=== PATIENT | male | born 1975 | race Caucasian/White ===

== ENCOUNTER 2023-12-18 06:55 | Inpatient (IN) | payer MEDICARE ==
[2023-12-18 07:48] LABS: #Eosinphils 0.4 thou/uL (0.0-0.7); #Monocytes 0.8 thou/uL (0.11-0.59); #Neutrophils 7.6 thou/uL (1.40-6.50); %Basophils 0.3 % (0.0-1.0); %Eosinophils 3.4 % (0.0-10.0); %Lymphocytes 22.7 % (21.0-51.0); %Monocytes 6.6 % (0.0-10.0); %Neutrophils 66.6 % (42.0-75.0); Hematocrit 44.8 % (42.0-52.0); Hemoglobin 15.9 g/dL (14.0-18.0); Mean Corpuscular HGB CONC 35.5 g/dL (32.0-36.0); Mean Corpuscular Hemoglobin 29.3 pg (27.0-31.0); Mean Corpuscular Volume 82.7 fl (78.0-98.0); Mean Platelet Volume 9.2 fL (7.4-10.4); Platelet Count 291 10x3/uL (130-400); RBC Distribution Width 13.5 % (11.5-14.5); Red Blood Cell (RBC) Count 5.42 mill/uL (4.70-6.10); White Blood Cell (WBC) Count 11.4 10x3/uL (4.8-10.8)
[2023-12-18 08:11] LABS: ALT (SGPT) 21 U/L (8-55); AST (SGOT) 19 U/L (5-34); Albumin 4.1 g/dL (3.5-5.0); Alkaline Phosphatase 113 U/L (40-110); Anion Gap 16 mmol/L (10-20); BUN (Urea Nitrogen) 19 mg/dL (8.9-20.6); Bilirubin, Total 0.9 mg/dL (0.2-1.2); Calc. Creatinine Clearance 0 mL/min (70-130); Calcium 9.5 mg/dL (7.8-10.44); Carbon Dioxide 29 mmol/L (22-29); Chloride 92 mmol/L (98-107); Estimated GFR 39; Globulin 2.8 g/dL (2.4-3.5); Magnesium 2.3 mg/dL (1.6-2.6); Potassium 3.3 mmol/L (3.5-5.1); Protein, Total 6.9 g/dL (6.0-8.3); Sodium 134 mmol/L (136-145)
[2023-12-18 08:14] LABS: Troponin I 0.068 ng/mL (< 0.028)
[2023-12-18 08:23] LABS: Critical Call Chemistry ERS.JAN@0825; Glucose 464 mg/dL (70-105)
[2023-12-18] MEDS ORDERED: clonazePAM 1 MG TAB ONE (08:51)
[2023-12-18] MEDS ORDERED: Potassium Chloride 20 MEQ TAB ONE (08:51)
[2023-12-18] MEDS ORDERED: Furosemide 20 MG (2 mL) VIAL ONE (08:51)
[2023-12-18] MEDS ORDERED: Ondansetron PF 4 MG/2 ML Vial IVP PRN (09:58)
[2023-12-18] MEDS ORDERED: Insulin Glargine 30 UNITS/0.3 ML VIAL SC SCH (10:15)
[2023-12-18] MEDS ORDERED: Acetaminophen 325 MG TAB ONE (10:47)
[2023-12-18] MEDS: Acetaminophen 325 MG TAB PO PRN ×2 (10:56→21:54)
[2023-12-18] MEDS ORDERED: Carvedilol 25 MG TAB PO SCH (11:15)
[2023-12-18] MEDS ORDERED: hydrALAZINE 25 MG TAB PO SCH (11:15)
[2023-12-18] MEDS ORDERED: Carvedilol 25 MG TAB ONE (11:46)
[2023-12-18] MEDS ORDERED: hydrALAZINE 25 MG TAB ONE ×2 (11:46→13:55)
[2023-12-18] MEDS ORDERED: Furosemide 40 MG (4 mL) VIAL ONE (13:55)
[2023-12-18] MEDS: Furosemide 40 MG (4 mL) VIAL SLOW IVP SCH (14:02)
[2023-12-18] MEDS: hydrALAZINE 25 MG TAB PO SCH ×2 (15:05→21:54)
[2023-12-18] MEDS ORDERED: lamoTRIgine 100 MG TAB PO SCH (15:15)
[2023-12-18] MEDS ORDERED: HumaLOG 300 UNITS/3 ML VIAL SC PRN (20:36)
[2023-12-18] MEDS: lamoTRIgine 100 MG TAB PO SCH (21:54)
[2023-12-18] MEDS: Carvedilol 25 MG TAB PO SCH (21:54)
[2023-12-18] MEDS: HumaLOG 300 UNITS/3 ML VIAL SC PRN (21:55)
[2023-12-18] MEDS ORDERED: clonazePAM 0.5 MG TAB PO SCH (22:30)
[2023-12-19] MEDS: HumaLOG 300 UNITS/3 ML VIAL SC PRN ×2 (06:37→17:46)
[2023-12-19] MEDS: Furosemide 40 MG (4 mL) VIAL SLOW IVP SCH ×2 (06:37→15:15)
[2023-12-19 07:44] LABS: #Eosinphils 0.4 thou/uL (0.0-0.7); #Monocytes 0.7 thou/uL (0.11-0.59); #Neutrophils 7.3 thou/uL (1.40-6.50); %Basophils 0.4 % (0.0-1.0); %Eosinophils 3.2 % (0.0-10.0); %Lymphocytes 23.4 % (21.0-51.0); %Neutrophils 66.6 % (42.0-75.0); Hematocrit 52.9 % (42.0-52.0); Hemoglobin 18.1 g/dL (14.0-18.0); Mean Corpuscular HGB CONC 34.2 g/dL (32.0-36.0); Mean Corpuscular Hemoglobin 28.7 pg (27.0-31.0); Mean Corpuscular Volume 83.8 fl (78.0-98.0); Mean Platelet Volume 9.4 fL (7.4-10.4); Platelet Count 347 10x3/uL (130-400); RBC Distribution Width 13.9 % (11.5-14.5); Red Blood Cell (RBC) Count 6.31 mill/uL (4.70-6.10); White Blood Cell (WBC) Count 10.9 10x3/uL (4.8-10.8)
[2023-12-19 08:02] LABS: Anion Gap 17 mmol/L (10-20); BUN (Urea Nitrogen) 21 mg/dL (8.9-20.6); Calc. Creatinine Clearance 86 mL/min (70-130); Calcium 9.6 mg/dL (7.8-10.44); Carbon Dioxide 28 mmol/L (22-29); Chloride 93 mmol/L (98-107); Estimated GFR 42; Glucose 316 mg/dL (70-105); Potassium 3.3 mmol/L (3.5-5.1); Sodium 135 mmol/L (136-145)
[2023-12-19] MEDS: Carvedilol 25 MG TAB PO SCH ×2 (08:35→22:00)
[2023-12-19] MEDS: Enoxaparin 40 MG (0.4 mL) SYRINGE SC SCH (08:36)
[2023-12-19] MEDS: hydrALAZINE 25 MG TAB PO SCH ×3 (08:36→22:01)
[2023-12-19] MEDS: lamoTRIgine 100 MG TAB PO SCH ×3 (08:37→22:00)
[2023-12-19] MEDS ORDERED: Insulin Glargine 30 UNITS/0.3 ML VIAL SC SCH ×2 (09:00→10:45)
[2023-12-19] MEDS ORDERED: clonazePAM 1 MG TAB PO PRN ×2 (11:01→17:05)
[2023-12-19] MEDS ORDERED: Isosorbide Dinitrate 20 MG TAB PO SCH (11:45)
[2023-12-19] MEDS: HumaLOG 300 UNITS/3 ML VIAL SC SCH ×2 (12:34→17:46)
[2023-12-19] MEDS: Isosorbide Dinitrate 5 MG TAB PO SCH (22:00)
[2023-12-20 05:05] VITALS: BMI 37.5
[2023-12-20] MEDS: Furosemide 40 MG (4 mL) VIAL SLOW IVP SCH ×2 (06:11→13:08)
[2023-12-20] MEDS: Enoxaparin 40 MG (0.4 mL) SYRINGE SC SCH (07:52)
[2023-12-20] MEDS: hydrALAZINE 25 MG TAB PO SCH ×3 (07:52→20:57)
[2023-12-20] MEDS: lamoTRIgine 100 MG TAB PO SCH ×3 (07:53→20:56)
[2023-12-20] MEDS: Carvedilol 25 MG TAB PO SCH ×2 (07:53→20:57)
[2023-12-20] MEDS: Isosorbide Dinitrate 5 MG TAB PO SCH (07:54)
[2023-12-20] MEDS: HumaLOG 300 UNITS/3 ML VIAL SC SCH ×3 (07:54→16:18)
[2023-12-20] MEDS: hydrALAZINE 20 MG/ML VIAL SLOW IVP PRN ×2 (07:55→17:34)
[2023-12-20] MEDS ORDERED: Insulin Glargine 30 UNITS/0.3 ML VIAL SC SCH (09:00)
[2023-12-20] MEDS: clonazePAM 1 MG TAB PO PRN ×2 (09:02→17:44)
[2023-12-20] MEDS: Empagliflozin 10 MG TAB PO SCH (09:02)
[2023-12-20 09:34] LABS: #Eosinphils 0.3 thou/uL (0.0-0.7); #Monocytes 0.6 thou/uL (0.11-0.59); #Neutrophils 7.2 thou/uL (1.40-6.50); %Basophils 0.3 % (0.0-1.0); %Lymphocytes 20.7 % (21.0-51.0); %Monocytes 5.8 % (0.0-10.0); %Neutrophils 69.8 % (42.0-75.0); Hematocrit 48.8 % (42.0-52.0); Hemoglobin 16.7 g/dL (14.0-18.0); Mean Corpuscular HGB CONC 34.2 g/dL (32.0-36.0); Mean Corpuscular Hemoglobin 29.1 pg (27.0-31.0); Mean Corpuscular Volume 85.2 fl (78.0-98.0); Mean Platelet Volume 9.7 fL (7.4-10.4); Platelet Count 356 10x3/uL (130-400); RBC Distribution Width 13.8 % (11.5-14.5); Red Blood Cell (RBC) Count 5.73 mill/uL (4.70-6.10); White Blood Cell (WBC) Count 10.3 10x3/uL (4.8-10.8)
[2023-12-20 09:53] LABS: Albumin 4.2 g/dL (3.5-5.0); Anion Gap 16 mmol/L (10-20); BUN (Urea Nitrogen) 23 mg/dL (8.9-20.6); BUN/Creatinine Ratio 11.27; Calc. Creatinine Clearance 80 mL/min (70-130); Calcium 9.6 mg/dL (7.8-10.44); Carbon Dioxide 29 mmol/L (22-29); Chloride 93 mmol/L (98-107); Estimated GFR 39; Glucose 318 mg/dL (70-105); Phosphorus 3.2 mg/dL (2.3-4.7); Potassium 3.1 mmol/L (3.5-5.1); Sodium 135 mmol/L (136-145)
[2023-12-20] MEDS ORDERED: Potassium Chloride 20 MEQ TAB PO SCH (11:00)
[2023-12-20] MEDS: Acetaminophen 325 MG TAB PO PRN ×2 (11:30→17:44)
[2023-12-20] MEDS: HumaLOG 300 UNITS/3 ML VIAL SC PRN ×2 (12:11→17:46)
[2023-12-20 17:35] LABS: Magnesium 2.5 mg/dL (1.6-2.6)
[2023-12-20] MEDS: Isosorbide Dinitrate 20 MG TAB PO SCH (20:57)
[2023-12-20] MEDS ORDERED: clonazePAM 1 MG TAB PO SCH (21:00)
[2023-12-21] MEDS: Furosemide 40 MG (4 mL) VIAL SLOW IVP SCH (05:20)
[2023-12-21 05:27] LABS: #Eosinphils 0.3 thou/uL (0.0-0.7); #Monocytes 0.7 thou/uL (0.11-0.59); #Neutrophils 5.5 thou/uL (1.40-6.50); %Basophils 0.3 % (0.0-1.0); %Lymphocytes 25.4 % (21.0-51.0); %Monocytes 7.9 % (0.0-10.0); %Neutrophils 63.2 % (42.0-75.0); Hematocrit 43.1 % (42.0-52.0); Hemoglobin 14.6 g/dL (14.0-18.0); Mean Corpuscular HGB CONC 33.9 g/dL (32.0-36.0); Mean Corpuscular Hemoglobin 29.3 pg (27.0-31.0); Mean Corpuscular Volume 86.5 fl (78.0-98.0); Platelet Count 276 10x3/uL (130-400); Red Blood Cell (RBC) Count 4.98 mill/uL (4.70-6.10); White Blood Cell (WBC) Count 8.7 10x3/uL (4.8-10.8)
[2023-12-21 06:03] LABS: Anion Gap 12 mmol/L (10-20); BUN (Urea Nitrogen) 21 mg/dL (8.9-20.6); Calc. Creatinine Clearance 75 mL/min (70-130); Calcium 9.3 mg/dL (7.8-10.44); Carbon Dioxide 30 mmol/L (22-29); Chloride 97 mmol/L (98-107); Estimated GFR 36; Glucose 255 mg/dL (70-105); Potassium 3.1 mmol/L (3.5-5.1); Sodium 136 mmol/L (136-145)
[2023-12-21] MEDS: hydrALAZINE 25 MG TAB PO SCH ×2 (08:55→15:29)
[2023-12-21] MEDS: Isosorbide Dinitrate 20 MG TAB PO SCH ×2 (08:55→15:29)
[2023-12-21] MEDS: Carvedilol 25 MG TAB PO SCH ×2 (08:55→15:29)
[2023-12-21] MEDS: Empagliflozin 10 MG TAB PO SCH (08:55)
[2023-12-21] MEDS: Enoxaparin 40 MG (0.4 mL) SYRINGE SC SCH (08:56)
[2023-12-21] MEDS: HumaLOG 300 UNITS/3 ML VIAL SC SCH ×2 (08:57→12:58)
[2023-12-21] MEDS: HumaLOG 300 UNITS/3 ML VIAL SC PRN ×2 (08:58→12:58)
[2023-12-21] MEDS ORDERED: Ezetimibe 10 MG TAB PO SCH (09:00)
[2023-12-21] MEDS ORDERED: Insulin Glargine 30 UNITS/0.3 ML VIAL SC SCH (09:00)
[2023-12-21] MEDS: lamoTRIgine 100 MG TAB PO SCH ×2 (09:06→15:28)
[2023-12-21] MEDS ORDERED: Potassium Chloride 20 MEQ TAB PO SCH ×2 (09:45→17:00)
[2023-12-21] MEDS ORDERED: Magnesium Oxide 400 MG TAB PO SCH (09:45)
[2023-12-21 11:21] VITALS: BP 177/103; TEMP 97.6
[2023-12-21] MEDS ORDERED: Amlodipine 5 MG TAB PO SCH (13:15)
[2023-12-21 13:56] LABS: Creatinine, Urine 54.87 mg/dL (63-166); Protein, Urine Random Quant 107 mg/dL (1-14); Sodium, Urine Less than 20 mmol/L (Not Available); Urea Nitrogen, Random Urine 326 mg/dl
[2023-12-22] MEDS ORDERED: Spironolactone 25 MG TAB PO SCH (08:00)
[2023-12-22] MEDS ORDERED: Amlodipine 5 MG TAB PO SCH (09:00)
[2023-12-22] MEDS ORDERED: Magnesium Oxide 400 MG TAB PO SCH (09:00)
== END 2023-12-21 16:05 | disposition home or self-care (01) | DRG 280 ==
LOC: ERS 06:55 → ERHOLD 09:23 → 2SW 18:10 → OBSVTOIN 12-20 16:33
PROVIDERS: ADMIT Internal Medicine; ATTEND Internal Medicine
DX: I13.0 Hypertensive heart and chronic kidney disease with heart failure and stage 1 through stage 4 chronic kidney disease, or unspecified chronic kidney disease (principal); I50.43 Acute on chronic combined systolic (congestive) and diastolic (congestive) heart failure; I21.A1 Myocardial infarction type 2; N17.9 Acute kidney failure, unspecified; E11.9 Type 2 diabetes mellitus without complications; E11.22 Type 2 diabetes mellitus with diabetic chronic kidney disease; F41.8 Other specified anxiety disorders; F31.9 Bipolar disorder, unspecified; F12.90 Cannabis use, unspecified, uncomplicated; E66.9 Obesity, unspecified; G47.33 Obstructive sleep apnea (adult) (pediatric); Z68.37 Body mass index [BMI] 37.0-37.9, adult; N18.30 Chronic kidney disease, stage 3 unspecified; I16.0 Hypertensive urgency; E87.6 Hypokalemia; Z71.6 Tobacco abuse counseling; Z79.899 Other long term (current) drug therapy; Z90.49 Acquired absence of other specified parts of digestive tract; Z91.148 Patient's other noncompliance with medication regimen for other reason; Z98.84 Bariatric surgery status; Z98.890 Other specified postprocedural states; Z82.49 Family history of ischemic heart disease and other diseases of the circulatory system
CPT/HCPCS: 36415; 36416; 71045; 76770; 80048; 80053; 80069; 82088; 82570; 83735; 83880; 84156; 84244; 84300; 84484; 84540; 85025; 93005; 93306; 93798; 96372; 96374; 96375; 96376; 97139; G0378; J0360; J1650; J1815; J1940

== ENCOUNTER 2024-10-09 10:46 | Inpatient (IN) | payer MEDICARE ==
[2024-10-09 13:40] LABS: #Basophils Less than 0.03 10x3/uL (0.0-0.2); %Basophils 0.2 % (0.0-1.0); %Eosinophils 2.6 % (0.0-10.0); %Lymphocytes 21.8 % (21.0-51.0); %Monocytes 6.8 % (0.0-10.0); %Neutrophils 68.2 % (42.0-75.0); Hematocrit 49.5 % (42.0-52.0); Hemoglobin 16.2 g/dL (14.0-18.0); Mean Corpuscular HGB CONC 32.7 g/dL (32.0-36.0); Mean Corpuscular Hemoglobin 28.2 pg (27.0-31.0); Mean Corpuscular Volume 86.2 fL (78.0-98.0); Platelet Count 339 10x3/uL (130-400); RBC Distribution Width 14.6 % (11.5-14.5); Red Blood Cell (RBC) Count 5.74 mill/uL (4.70-6.10)
[2024-10-09 13:54] LABS: INR-International Normal Ratio 0.9; Prothrombin Time 11.7 sec (12.0-14.7)
[2024-10-09 13:58] LABS: PTT 26.1 sec (22.9-36.1)
[2024-10-09 14:31] LABS: Troponin I 0.083 ng/mL (< 0.028)
[2024-10-09 14:54] LABS: ALT (SGPT) 23 U/L (8-55); AST (SGOT) 24 U/L (5-34); Albumin 3.3 g/dL (3.5-5.0); Alkaline Phosphatase 116 U/L (40-110); Anion Gap 19 mmol/L (10-20); BUN (Urea Nitrogen) 26 mg/dL (8.9-20.6); Bilirubin, Total 0.5 mg/dL (0.2-1.2); Calc. Creatinine Clearance 0 mL/min (70-130); Calcium 9.4 mg/dL (7.8-10.44); Carbon Dioxide 28 mmol/L (22-29); Chloride 89 mmol/L (98-107); Estimated GFR 34; Globulin 3.8 g/dL (2.4-3.5); Glucose 427 mg/dL (70-105); Potassium 3.3 mmol/L (3.5-5.1); Protein, Total 7.1 g/dL (6.0-8.3); Sodium 133 mmol/L (136-145)
[2024-10-09 15:04] LABS: Bacteria/HPF None Seen HPF (None Seen); Bilirubin Negative (Negative); Blood, Urine 1+ (Negative); CAUTI Indications for Culture Pelvic or flank pain; Clarity Clear (Clear); Glucose, Urine (Dipstick) Greater than 1000 mg/dL (Negative); Ketone, Urine Negative (Negative); Leukocyte Negative Leu/uL (Negative); Nitrite Negative (Negative); Protein, Urine (Dipstick) 300 mg/dL (Neg-Trace); RBC/HPF 0-3 HPF (0-3); Specific Gravity, Urine 1.014 (1.002-1.036); Squamous Epithelial 0-3 HPF (0-3); Urobilinogen Normal mg/dL (Less than 2); WBC/HPF 0-3 HPF (0-3)
[2024-10-09 15:06] LABS: Urine Culture Reflex No No
[2024-10-09] MEDS ORDERED: Potassium Chloride 20 MEQ TAB ONE (16:09)
[2024-10-09 17:00] LABS: Troponin I 0.093 ng/mL (< 0.028)
[2024-10-09] MEDS ORDERED: hydrALAZINE 20 MG/ML VIAL ONE ×2 (18:17→18:57)
[2024-10-09] MEDS ORDERED: niCARdipine 25 MG/10 ML SDV ONE ×2 (19:16→22:45)
[2024-10-09] MEDS ORDERED: Aspirin Chewable 81 MG TAB ONE (19:27)
[2024-10-09] MEDS ORDERED: Acetaminophen 325 MG TAB PO PRN (19:35)
[2024-10-09] MEDS ORDERED: Magnesium 2 GM/50 ML BAG (IN WATER) ONE (20:07)
[2024-10-09] MEDS ORDERED: Dextrose 50% Abboject 50 ML SYRINGE SLOW IVP PRN (21:02)
[2024-10-09] MEDS ORDERED: Dextrose 5% in Water 1,000 ML IV PRN (21:02)
[2024-10-09] MEDS ORDERED: Glucagon 1 MG/ML KIT IM PRN (21:02)
[2024-10-09 21:56] LABS: Hemoglobin A1c 12.2 % (4.0-6.0)
[2024-10-09 22:02] LABS: Troponin I 0.104 ng/mL (< 0.028)
[2024-10-09] MEDS ORDERED: Lorazepam 1 MG TAB PO PRN (23:28)
[2024-10-10 00:16] VITALS: BMI 39.2
[2024-10-10] MEDS ORDERED: hydrALAZINE 20 MG/ML VIAL SLOW IVP PRN (01:10)
[2024-10-10] MEDS ORDERED: Labetalol HCl 100 MG/20 ML VIAL SLOW IVP PRN (01:10)
[2024-10-10] MEDS: niCARdipine 25 MG in Sodium Chloride 0.9% 250 ML 250 ML IVPB SCH (01:28)
[2024-10-10] MEDS: Insulin Lispro 100 UNIT/ML 10 ML VIAL SC PRN ×2 (01:51→11:04)
[2024-10-10] MEDS: clonazePAM 1 MG TAB PO SCH ×2 (01:58→08:33)
[2024-10-10 02:16] LABS: Troponin I 0.111 ng/mL (< 0.028)
[2024-10-10 05:42] LABS: #Basophils 0.05 10x3/uL (0.0-0.2); %Basophils 0.4 % (0.0-1.0); %Eosinophils 2.2 % (0.0-10.0); %Lymphocytes 17.1 % (21.0-51.0); %Monocytes 8.3 % (0.0-10.0); %Neutrophils 71.6 % (42.0-75.0); Hematocrit 47.9 % (42.0-52.0); Hemoglobin 15.6 g/dL (14.0-18.0); Mean Corpuscular HGB CONC 32.6 g/dL (32.0-36.0); Mean Corpuscular Hemoglobin 28.1 pg (27.0-31.0); Mean Corpuscular Volume 86.3 fL (78.0-98.0); Mean Platelet Volume 9.7 fL (7.4-10.4); Platelet Count 361 10x3/uL (130-400); RBC Distribution Width 14.6 % (11.5-14.5); Red Blood Cell (RBC) Count 5.55 mill/uL (4.70-6.10)
[2024-10-10 08:19] LABS: Anion Gap 16 mmol/L (10-20); BUN (Urea Nitrogen) 27 mg/dL (8.9-20.6); Calc. Creatinine Clearance 73 mL/min (70-130); Calcium 9.4 mg/dL (7.8-10.44); Carbon Dioxide 29 mmol/L (22-29); Chloride 90 mmol/L (98-107); Estimated GFR 33; Glucose 309 mg/dL (70-105); Potassium 2.8 mmol/L (3.5-5.1); Sodium 132 mmol/L (136-145)
[2024-10-10] MEDS: hydrALAZINE 25 MG TAB PO SCH (08:30)
[2024-10-10] MEDS: Atorvastatin Calcium 40 MG TAB PO SCH (08:31)
[2024-10-10] MEDS: NIFEdipine XL 60 MG ER.TAB PO SCH (08:31)
[2024-10-10] MEDS: Isosorbide Mononitrate 30 MG ER.TAB PO SCH (08:32)
[2024-10-10] MEDS: Empagliflozin 10 MG TAB PO SCH (08:32)
[2024-10-10] MEDS: Ezetimibe 10 MG TAB PO SCH (08:32)
[2024-10-10] MEDS: lamoTRIgine 100 MG TAB PO SCH (08:32)
[2024-10-10] MEDS: Spironolactone 25 MG TAB PO SCH (08:32)
[2024-10-10] MEDS: Aripiprazole 10 MG TAB PO SCH (08:32)
[2024-10-10] MEDS: Pantoprazole DR 40 MG TAB PO SCH (08:32)
[2024-10-10] MEDS: Insulin Glargine 30 UNITS/0.3 ML VIAL SC SCH (08:33)
[2024-10-10] MEDS: Enoxaparin 40 MG (0.4 mL) SYRINGE SC SCH (08:33)
[2024-10-10] MEDS ORDERED: Insulin Glargine 30 UNITS/0.3 ML VIAL SC SCH ×2 (09:00→21:00)
[2024-10-10] MEDS ORDERED: Electrolyte Replacement Protocol 1 EACH FS PRN (10:51)
[2024-10-10] MEDS: Potassium Chloride 20 MEQ TAB PO SCH ×2 (11:09→22:48)
[2024-10-10] MEDS: Acetaminophen 500 MG TAB PO PRN (12:40)
[2024-10-10 13:22] LABS: Magnesium 2.5 mg/dL (1.6-2.6)
[2024-10-10 13:46] LABS: Anion Gap 19 mmol/L (10-20); BUN (Urea Nitrogen) 29 mg/dL (8.9-20.6); Calc. Creatinine Clearance 68 mL/min (70-130); Calcium 9.6 mg/dL (7.8-10.44); Carbon Dioxide 27 mmol/L (22-29); Chloride 88 mmol/L (98-107); Estimated GFR 31; Glucose 392 mg/dL (70-105); Potassium 3.1 mmol/L (3.5-5.1); Sodium 131 mmol/L (136-145)
[2024-10-10 13:50] LABS: Troponin I 0.139 ng/mL (< 0.028)
[2024-10-10 19:38] LABS: Potassium 3.2 mmol/L (3.5-5.1)
[2024-10-10] MEDS: hydrOXYzine 25 MG TAB PO SCH (22:47)
[2024-10-11 05:50] LABS: #Basophils 0.05 10x3/uL (0.0-0.2); %Basophils 0.4 % (0.0-1.0); %Lymphocytes 12.6 % (21.0-51.0); %Monocytes 7.3 % (0.0-10.0); %Neutrophils 77.4 % (42.0-75.0); Hemoglobin 14.2 g/dL (14.0-18.0); Mean Corpuscular Hemoglobin 28.3 pg (27.0-31.0); Mean Corpuscular Volume 85.7 fL (78.0-98.0); Mean Platelet Volume 9.5 fL (7.4-10.4); Platelet Count 359 10x3/uL (130-400); RBC Distribution Width 14.6 % (11.5-14.5); Red Blood Cell (RBC) Count 5.02 mill/uL (4.70-6.10)
[2024-10-11 06:05] LABS: ALT (SGPT) 30 U/L (8-55); AST (SGOT) 31 U/L (5-34); Albumin 3.1 g/dL (3.5-5.0); Alkaline Phosphatase 105 U/L (40-110); Anion Gap 16 mmol/L (10-20); BUN (Urea Nitrogen) 27 mg/dL (8.9-20.6); Bilirubin, Total 0.8 mg/dL (0.2-1.2); Calc. Creatinine Clearance 70 mL/min (70-130); Carbon Dioxide 27 mmol/L (22-29); Chloride 95 mmol/L (98-107); Estimated GFR 32; Glucose 268 mg/dL (70-105); Potassium 3.3 mmol/L (3.5-5.1); Protein, Total 6.1 g/dL (6.0-8.3); Sodium 135 mmol/L (136-145)
[2024-10-11] MEDS: Labetalol HCl 100 MG TAB PO SCH (08:54)
[2024-10-11] MEDS: Spironolactone 25 MG TAB PO SCH (08:54)
[2024-10-11] MEDS: Potassium Chloride 20 MEQ TAB PO SCH (09:55)
[2024-10-11] MEDS: clonazePAM 0.5 MG TAB PO SCH (13:18)
[2024-10-11] MEDS: Isosorbide Mononitrate 30 MG ER.TAB PO SCH (21:16)
[2024-10-11] MEDS: clonazePAM 1 MG TAB PO SCH (21:17)
[2024-10-11] MEDS: NIFEdipine XL 60 MG ER.TAB PO SCH (21:17)
[2024-10-12] MEDS: Ipratropium/Albuterol 3 ML NEB NEB PRN (02:17)
[2024-10-12] MEDS: Furosemide 40 MG (4 mL) VIAL SLOW IVP SCH ×2 (03:09→09:01)
[2024-10-12 03:45] LABS: #Basophils 0.05 10x3/uL (0.0-0.2); %Basophils 0.3 % (0.0-1.0); %Eosinophils 1.6 % (0.0-10.0); %Lymphocytes 11.9 % (21.0-51.0); %Monocytes 6.6 % (0.0-10.0); %Neutrophils 79.1 % (42.0-75.0); Hematocrit 41.8 % (42.0-52.0); Hemoglobin 13.8 g/dL (14.0-18.0); Mean Platelet Volume 9.4 fL (7.4-10.4); Platelet Count 425 10x3/uL (130-400); RBC Distribution Width 14.4 % (11.5-14.5); Red Blood Cell (RBC) Count 4.92 mill/uL (4.70-6.10)
[2024-10-12 04:01] LABS: ALT (SGPT) 29 U/L (8-55); AST (SGOT) 25 U/L (5-34); Albumin 3.2 g/dL (3.5-5.0); Alkaline Phosphatase 104 U/L (40-110); Anion Gap 17 mmol/L (10-20); BUN (Urea Nitrogen) 28 mg/dL (8.9-20.6); Calc. Creatinine Clearance 58 mL/min (70-130); Calcium 8.9 mg/dL (7.8-10.44); Carbon Dioxide 24 mmol/L (22-29); Chloride 95 mmol/L (98-107); Estimated GFR 25; Globulin 3.3 g/dL (2.4-3.5); Glucose 246 mg/dL (70-105); Potassium 3.4 mmol/L (3.5-5.1); Protein, Total 6.5 g/dL (6.0-8.3); Sodium 133 mmol/L (136-145)
[2024-10-12 11:18] LABS: Creatinine, Urine 101.67 mg/dL (63-166); Protein, Urine Random Quant 123 mg/dL (1-14); Sodium, Urine Less than 20 mmol/L (Not Available); Urea Nitrogen, Random Urine 279 mg/dl
[2024-10-12] MEDS: Potassium Chloride 20 MEQ TAB PO SCH (11:25)
[2024-10-12] MEDS: Insulin Lispro 100 UNIT/ML 10 ML VIAL SC PRN (12:35)
[2024-10-12] MEDS: traMADol HCl 50 MG TAB PO PRN (12:42)
[2024-10-13 06:37] LABS: Anion Gap 17 mmol/L (10-20); BUN (Urea Nitrogen) 33 mg/dL (8.9-20.6); Calc. Creatinine Clearance 47 mL/min (70-130); Calcium 9.3 mg/dL (7.8-10.44); Carbon Dioxide 23 mmol/L (22-29); Chloride 96 mmol/L (98-107); Estimated GFR 20; Glucose 191 mg/dL (70-105); Sodium 132 mmol/L (136-145)
[2024-10-13] MEDS ORDERED: Electrolyte Replacement Protocol 1 EACH FS PRN (08:53)
[2024-10-13] MEDS: clonazePAM 1 MG TAB PO SCH (09:38)
[2024-10-13] MEDS: FLU (Fluarix Triv) TS24-25(6MOS UP)/PF 45 MCG/0.5 ML Syringe IM ONE (09:39)
[2024-10-13] MEDS: Furosemide 40 MG (4 mL) VIAL SLOW IVP SCH (15:20)
[2024-10-13] MEDS: DOBUTamine 500 mg/250 ml 250 ML IVPB SCH (23:11)
[2024-10-14 02:42] LABS: #Basophils 0.05 10x3/uL (0.0-0.2); %Basophils 0.4 % (0.0-1.0); %Eosinophils 2.2 % (0.0-10.0); %Lymphocytes 16.4 % (21.0-51.0); %Monocytes 7.8 % (0.0-10.0); %Neutrophils 72.8 % (42.0-75.0); Hematocrit 37.5 % (42.0-52.0); Hemoglobin 12.2 g/dL (14.0-18.0); Mean Corpuscular HGB CONC 32.5 g/dL (32.0-36.0); Mean Corpuscular Hemoglobin 28.2 pg (27.0-31.0); Mean Corpuscular Volume 86.8 fL (78.0-98.0); Mean Platelet Volume 10.6 fL (7.4-10.4); Platelet Count 381 10x3/uL (130-400); RBC Distribution Width 14.7 % (11.5-14.5); Red Blood Cell (RBC) Count 4.32 mill/uL (4.70-6.10)
[2024-10-14] MEDS ORDERED: Nystatin Powder 15 GM BOT TOP PRN (04:03)
[2024-10-14 04:50] LABS: Anion Gap 20 mmol/L (10-20); BUN (Urea Nitrogen) 36 mg/dL (8.9-20.6); Calc. Creatinine Clearance 42 mL/min (70-130); Calcium 8.9 mg/dL (7.8-10.44); Carbon Dioxide 22 mmol/L (22-29); Chloride 95 mmol/L (98-107); Estimated GFR 17; Glucose 155 mg/dL (70-105); Potassium 3.8 mmol/L (3.5-5.1); Sodium 133 mmol/L (136-145)
[2024-10-14] MEDS: Metolazone 5 MG TAB PO SCH (11:48)
[2024-10-14] MEDS: Albumin 25% 25 GM (100 mL) BOT IVPB SCH (11:48)
[2024-10-14] MEDS: Furosemide 100 MG (10 mL) VIAL SLOW IVP SCH (13:09)
[2024-10-14] MEDS ORDERED: Furosemide 40 MG (4 mL) VIAL SLOW IVP SCH (14:00)
[2024-10-14 18:59] LABS: Bacteria/HPF None Seen HPF (None Seen); Bilirubin Negative (Negative); Blood, Urine 1+ (Negative); Clarity Turbid (Clear); Glucose, Urine (Dipstick) Greater than 1000 mg/dL (Negative); Ketone, Urine Negative (Negative); Leukocyte 25 Leu/uL (Negative); Nitrite Negative (Negative); Protein, Urine (Dipstick) 100 mg/dL (Neg-Trace); RBC/HPF 0-3 HPF (0-3); Specific Gravity, Urine 1.011 (1.002-1.036); Urobilinogen Normal mg/dL (Less than 2); pH, Urine 5.5 (5.0-9.0)
[2024-10-15 02:58] LABS: Anion Gap 20 mmol/L (10-20); BUN (Urea Nitrogen) 35 mg/dL (8.9-20.6); Calc. Creatinine Clearance 48 mL/min (70-130); Calcium 9.1 mg/dL (7.8-10.44); Carbon Dioxide 23 mmol/L (22-29); Chloride 92 mmol/L (98-107); Estimated GFR 19; Glucose 220 mg/dL (70-105); Potassium 3.5 mmol/L (3.5-5.1); Sodium 131 mmol/L (136-145)
[2024-10-15] MEDS: Albumin 25% 25 GM (100 mL) BOT IVPB SCH (12:35)
[2024-10-16] MEDS: Labetalol HCl 100 MG TAB PO SCH (07:50)
[2024-10-16 07:52] LABS: #Basophils 0.03 10x3/uL (0.0-0.2); %Basophils 0.3 % (0.0-1.0); %Eosinophils 4.5 % (0.0-10.0); %Lymphocytes 16.6 % (21.0-51.0); %Monocytes 8.6 % (0.0-10.0); %Neutrophils 69.6 % (42.0-75.0); Hematocrit 35.7 % (42.0-52.0); Hemoglobin 11.8 g/dL (14.0-18.0); Mean Corpuscular HGB CONC 33.1 g/dL (32.0-36.0); Mean Corpuscular Volume 84.8 fL (78.0-98.0); Mean Platelet Volume 9.2 fL (7.4-10.4); Platelet Count 444 10x3/uL (130-400); RBC Distribution Width 14.1 % (11.5-14.5); Red Blood Cell (RBC) Count 4.21 mill/uL (4.70-6.10)
[2024-10-16 08:06] LABS: Albumin 4.2 g/dL (3.5-5.0); Anion Gap 20 mmol/L (10-20); BUN (Urea Nitrogen) 36 mg/dL (8.9-20.6); BUN/Creatinine Ratio 10.47; Calc. Creatinine Clearance 49 mL/min (70-130); Calcium 9.6 mg/dL (7.8-10.44); Carbon Dioxide 26 mmol/L (22-29); Chloride 90 mmol/L (98-107); Estimated GFR 21; Glucose 189 mg/dL (70-105); Phosphorus 3.6 mg/dL (2.3-4.7); Potassium 3.2 mmol/L (3.5-5.1); Sodium 133 mmol/L (136-145)
[2024-10-16 08:08] LABS: Iron 26 ug/dL (65-175); Iron Binding Capacity, Total 236 mcg/dL (261-462)
[2024-10-16] MEDS ORDERED: Spironolactone 25 MG TAB PO SCH (09:00)
[2024-10-16] MEDS: Spironolactone 100 MG TAB PO SCH (09:55)
[2024-10-16] MEDS: Potassium Chloride 20 MEQ TAB PO SCH (09:55)
[2024-10-16] MEDS: Sodium Ferric Gluconate 250 MG in Sodium Chloride 0.9% 250 ML 250 ML IVPB SCH (17:03)
[2024-10-17 06:52] LABS: #Basophils Less than 0.03 10x3/uL (0.0-0.2); %Basophils 0.2 % (0.0-1.0); %Eosinophils 6.2 % (0.0-10.0); %Lymphocytes 18.4 % (21.0-51.0); %Monocytes 9.9 % (0.0-10.0); %Neutrophils 64.7 % (42.0-75.0); Hematocrit 36.2 % (42.0-52.0); Hemoglobin 11.9 g/dL (14.0-18.0); Mean Corpuscular HGB CONC 32.9 g/dL (32.0-36.0); Mean Corpuscular Hemoglobin 27.9 pg (27.0-31.0); Mean Corpuscular Volume 84.8 fL (78.0-98.0); Mean Platelet Volume 9.2 fL (7.4-10.4); Platelet Count 485 10x3/uL (130-400); Red Blood Cell (RBC) Count 4.27 mill/uL (4.70-6.10)
[2024-10-17 07:23] LABS: Anion Gap 18 mmol/L (10-20); BUN (Urea Nitrogen) 37 mg/dL (8.9-20.6); Calc. Creatinine Clearance 51 mL/min (70-130); Calcium 9.4 mg/dL (7.8-10.44); Carbon Dioxide 27 mmol/L (22-29); Chloride 88 mmol/L (98-107); Estimated GFR 22; Glucose 250 mg/dL (70-105); Potassium 3.5 mmol/L (3.5-5.1); Sodium 129 mmol/L (136-145)
[2024-10-17] MEDS: Potassium Chloride 20 MEQ TAB PO SCH (08:56)
[2024-10-17] MEDS ORDERED: Furosemide 40 MG (4 mL) VIAL SLOW IVP SCH (09:00)
[2024-10-17] MEDS: Furosemide 40 MG (4 mL) VIAL SLOW IVP SCH (14:14)
[2024-10-17] MEDS: Insulin Glargine 30 UNITS/0.3 ML VIAL SC SCH (20:22)
[2024-10-18 04:46] LABS: Hematocrit 37.8 % (42.0-52.0); Hemoglobin 12.4 g/dL (14.0-18.0); Platelet Count 513 10x3/uL (130-400)
[2024-10-18 05:01] LABS: Anion Gap 17 mmol/L (10-20); BUN (Urea Nitrogen) 45 mg/dL (8.9-20.6); Calc. Creatinine Clearance 55 mL/min (70-130); Calcium 9.6 mg/dL (7.8-10.44); Carbon Dioxide 28 mmol/L (22-29); Chloride 90 mmol/L (98-107); Estimated GFR 24; Glucose 237 mg/dL (70-105); Potassium 3.8 mmol/L (3.5-5.1); Sodium 131 mmol/L (136-145)
[2024-10-18] MEDS: Dapagliflozin Propanediol 10 MG TAB PO SCH (08:28)
[2024-10-18] MEDS: Insulin Glargine 30 UNITS/0.3 ML VIAL SC SCH ×2 (09:30→21:06)
[2024-10-19 05:53] LABS: Anion Gap 18 mmol/L (10-20); BUN (Urea Nitrogen) 53 mg/dL (8.9-20.6); Calc. Creatinine Clearance 53 mL/min (70-130); Calcium 9.5 mg/dL (7.8-10.44); Carbon Dioxide 25 mmol/L (22-29); Chloride 93 mmol/L (98-107); Estimated GFR 23; Glucose 291 mg/dL (70-105); Potassium 4.4 mmol/L (3.5-5.1); Sodium 132 mmol/L (136-145)
[2024-10-19 09:53] VITALS: BMI 38.9
[2024-10-19] MEDS: Dapagliflozin Propanediol 10 MG TAB PO SCH (10:10)
[2024-10-19] MEDS: Furosemide 40 MG TAB PO SCH ×2 (13:52→19:59)
[2024-10-19] MEDS ORDERED: Furosemide 20 MG TAB PO SCH (21:00)
[2024-10-20 04:45] LABS: Anion Gap 15 mmol/L (10-20); BUN (Urea Nitrogen) 54 mg/dL (8.9-20.6); Calc. Creatinine Clearance 52 mL/min (70-130); Calcium 9.3 mg/dL (7.8-10.44); Carbon Dioxide 27 mmol/L (22-29); Chloride 93 mmol/L (98-107); Estimated GFR 23; Glucose 214 mg/dL (70-105); Potassium 4.1 mmol/L (3.5-5.1); Sodium 131 mmol/L (136-145)
[2024-10-20 07:39] VITALS: BP 157/83; TEMP 98.6
[2024-10-20] MEDS: Torsemide 10 MG TAB PO SCH ×2 (08:45→10:09)
[2024-10-20] MEDS: Dapagliflozin Propanediol 10 MG TAB PO SCH (10:09)
[2024-10-21] MEDS ORDERED: Torsemide 20 MG TAB PO SCH (09:00)
== END 2024-10-20 11:58 | disposition home or self-care (01) | DRG 280 ==
LOC: ERS 10:46 → ERHOLD 19:26 → CCU 23:55 → T4-B 10-10 16:37 → IMCU/EMU 10-13 19:34 → OBS 10-18 18:27
PROVIDERS: ADMIT Hospitalist; ATTEND Internal Medicine
PROC: 5A09357 Assistance with Respiratory Ventilation, Less than 24 Consecutive Hours, Continuous Positive Airway Pressure (ICD-10-PCS; principal; 2024-10-15)
DX: I16.1 Hypertensive emergency (principal); I50.33 Acute on chronic diastolic (congestive) heart failure; I21.4 Non-ST elevation (NSTEMI) myocardial infarction; J96.01 Acute respiratory failure with hypoxia; N18.4 Chronic kidney disease, stage 4 (severe); N17.9 Acute kidney failure, unspecified; E87.1 Hypo-osmolality and hyponatremia; E11.65 Type 2 diabetes mellitus with hyperglycemia; F31.9 Bipolar disorder, unspecified; I13.0 Hypertensive heart and chronic kidney disease with heart failure and stage 1 through stage 4 chronic kidney disease, or unspecified chronic kidney disease; E11.22 Type 2 diabetes mellitus with diabetic chronic kidney disease; E66.01 Morbid (severe) obesity due to excess calories; E87.6 Hypokalemia; Z68.38 Body mass index [BMI] 38.0-38.9, adult; Z90.49 Acquired absence of other specified parts of digestive tract; Z98.890 Other specified postprocedural states; Z79.899 Other long term (current) drug therapy; Z79.4 Long term (current) use of insulin; I35.0 Nonrheumatic aortic (valve) stenosis; G47.33 Obstructive sleep apnea (adult) (pediatric)
CPT/HCPCS: 36415; 36416; 70450; 71045; 71046; 80048; 80053; 80069; 81001; 82040; 82550; 82570; 82728; 83036; 83540; 83550; 83735; 83880; 84145; 84156; 84300; 84443; 84484; 84540; 85014; 85018; 85025; 85049; 85610; 85730; 86141; 87428; 93005; 93010; 93306; 94640; 94760; 96365; 96366; 96375; J0360; J1250; J1650; J1815; J1940; J2916; J3475; J7050; J7620; P9047

== ENCOUNTER 2024-11-03 17:17 | Emergency (ER) | payer MEDICARE ==
[2024-11-03 18:20] LABS: #Basophils 0.04 10x3/uL (0.0-0.2); %Basophils 0.6 % (0.0-1.0); %Eosinophils 5.7 % (0.0-10.0); %Lymphocytes 26.6 % (21.0-51.0); %Monocytes 8.4 % (0.0-10.0); %Neutrophils 58.6 % (42.0-75.0); Hematocrit 45.8 % (42.0-52.0); Hemoglobin 14.7 g/dL (14.0-18.0); Mean Corpuscular HGB CONC 32.1 g/dL (32.0-36.0); Mean Corpuscular Hemoglobin 27.8 pg (27.0-31.0); Mean Corpuscular Volume 86.7 fL (78.0-98.0); Mean Platelet Volume 9.1 fL (7.4-10.4); Platelet Count 301 10x3/uL (130-400); RBC Distribution Width 15.1 % (11.5-14.5); Red Blood Cell (RBC) Count 5.28 mill/uL (4.70-6.10)
[2024-11-03] MEDS ORDERED: NIFEdipine XL 60 MG ER.TAB PO SCH (18:45)
[2024-11-03] MEDS ORDERED: Labetalol HCl 100 MG TAB PO SCH (18:45)
[2024-11-03 18:48] LABS: Troponin I 0.012 ng/mL (< 0.028)
[2024-11-03 19:04] LABS: ALT (SGPT) 15 U/L (8-55); AST (SGOT) 26 U/L (5-34); Albumin 4.3 g/dL (3.5-5.0); Alkaline Phosphatase 88 U/L (40-110); Anion Gap 18 mmol/L (10-20); BUN (Urea Nitrogen) 27 mg/dL (8.9-20.6); Bilirubin, Total 0.4 mg/dL (0.2-1.2); Calc. Creatinine Clearance 0 mL/min (70-130); Calcium 9.7 mg/dL (7.8-10.44); Carbon Dioxide 20 mmol/L (22-29); Chloride 103 mmol/L (98-107); Estimated GFR 34; Globulin 3.6 g/dL (2.4-3.5); Glucose 159 mg/dL (70-105); Potassium 5.2 mmol/L (3.5-5.1); Protein, Total 7.9 g/dL (6.0-8.3); Sodium 136 mmol/L (136-145)
== END 2024-11-03 19:57 | disposition home or self-care (01) ==
LOC: ERS 17:17
DX: I11.0 Hypertensive heart disease with heart failure (principal); I50.9 Heart failure, unspecified; E11.9 Type 2 diabetes mellitus without complications; Z87.891 Personal history of nicotine dependence
CPT/HCPCS: 36415; 71045; 80053; 83880; 84484; 85025; 93005